=== PATIENT | female | born 1950 | race Caucasian/White ===

== ENCOUNTER 2018-08-18 11:06 | Emergency (ER) | payer BC ==
[~2018-08-18] VITALS: Ht 167.6 cm; Wt 72.6 kg
[2018-08-18 11:10] VITALS: BP 141/89
--- NOTE | 2018-08-18 11:38 | NUR ---
Pt assisted to the restroom and back to bed 1, rain [place] at bedside
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
[2018-08-18] MEDS ORDERED: KETOROLAC 30 MG/ML VIAL IM ONE (11:50)
--- NOTE | 2018-08-18 12:32 | NUR ---
AAO x 4 pt assisted to the restroom with wheel chair.
[2018-08-18 12:40] VITALS: BP 170/95
--- NOTE | 2018-08-18 12:40 | NUR ---
Patient discharged with v/s stable. Written and verbal after care instructions given and explained. Patient alert, oriented and verbalized understanding of instructions. Wheel Chair Assisted with to car. All questions addressed prior to discharge. ID band removed. Patient advised to follow up with PMD. Rx of Naprosyn, [place] given. Patient educated on indication of medication including possible reaction and side effects. Opportunity to ask questions provided and answered.
== END 2018-08-18 12:40 | disposition home or self-care (01) ==
LOC: MED 11:06
DX: S82.62XA Displaced fracture of lateral malleolus of left fibula, initial encounter for closed fracture (principal); Z88.0 Allergy status to penicillin; Z98.890 Other specified postprocedural states; W10.9XXA Fall (on) (from) unspecified stairs and steps, initial encounter; Y93.01 Activity, walking, marching and hiking; Y92.89 Other specified places as the place of occurrence of the external cause; Y99.8 Other external cause status
CPT/HCPCS: 29515; 73610; 96372; 99283; J1885